=== PATIENT | female | born 1950 | race Caucasian/White ===

== ENCOUNTER → 2024-03-15 13:06 | Outpatient (REF) | payer MEDICARE, SELFPAY | LOC: WDC 13:06 | PROVIDERS: ATTENDING PHYSICIAN Obstetrics & Gynecology Gynecology; FAMILY PHYSICIAN Family Medicine | DX: Z78.0 Asymptomatic menopausal state (principal); Z12.31 Encounter for screening mammogram for malignant neoplasm of breast | CPT/HCPCS: 77063; 77067; 77080 ==

== ENCOUNTER → 2025-04-08 13:32 | Outpatient (REF) | payer OTHER, SELFPAY | LOC: HWRCS 13:32 | PROVIDERS: ATTENDING PHYSICIAN Student in an Organized Health Care Education/Training Program | DX: R01.1 Cardiac murmur, unspecified (principal) | CPT/HCPCS: 93306 ==

== ENCOUNTER → 2025-07-28 14:10 | Outpatient (REF) | payer OTHER, SELFPAY | LOC: MRI 14:10 | PROVIDERS: ATTENDING PHYSICIAN Internal Medicine Gastroenterology; FAMILY PHYSICIAN Student in an Organized Health Care Education/Training Program | DX: R79.89 Other specified abnormal findings of blood chemistry (principal) | CPT/HCPCS: 74181; 76391 ==

== ENCOUNTER → 2025-10-10 11:51 | Outpatient (REF) | payer OTHER, SELFPAY | LOC: PAVMRI 11:51 | PROVIDERS: ATTENDING PHYSICIAN Student in an Organized Health Care Education/Training Program | DX: F09 Unspecified mental disorder due to known physiological condition (principal) | CPT/HCPCS: 70553; A9575 ==